=== PATIENT | female | born 1990 | race Caucasian/White ===

== ENCOUNTER 2017-02-23 23:35 | Inpatient (IN) | payer OTHER ==
[2017-02-24] MEDS ORDERED: SOD CHLORIDE 0.9% 1,000 ML IV (00:30)
[2017-02-24 01:19] LABS: ADD MAN DIFF? NO
[2017-02-24 01:31] LABS: BASOPHILS % 0.2 % (0.0-2.0); EOSINOPHILS % 0.3 % (0.0-7.0); HEMATOCRIT 25.8 % (37.0-47.0); HEMOGLOBIN 8.9 g/dl (12.0-16.0); LYMPHOCYTES % 10.2 % (15.0-51.0); MEAN CORPUSCULAR HEMOGLOBIN 30.6 pg (29.0-33.0); MEAN CORPUSCULAR HGB CONC 34.5 g/dl (32.0-37.0); MEAN CORPUSCULAR VOLUME 88.7 fl (82.0-101.0); MEAN PLATELET VOLUME 10.6 fl (7.4-10.4); MONOCYTE # 0.5 10^3/ul (0.3-0.9); MONOCYTES % 4.8 % (0.0-11.0); NEUTROPHIL # 8.4 10^3/ul (1.6-7.5); NEUTROPHILS % 84.2 % (39.0-77.0); PLATELET COUNT 148 10^3/UL (140-415); RED BLOOD COUNT 2.91 10^6/ul (4.20-5.40); RED CELL DISTRIBUTION WIDTH 12.3 % (11.5-14.5)
[2017-02-24] MEDS ORDERED: LACTATED RINGER'S 1,000 ML IV (01:31)
[2017-02-24 01:53] LABS: INR 0.99; PROTIME 13.2 Sec (11.9-14.9)
[2017-02-24 01:54] LABS: PARTIAL THROMBOPLASTIN TIME 25.5 Sec (25.0-35.0)
[2017-02-24] MEDS ORDERED: CEFAZOLIN 2 GM/50 ML (PMX) 50 ML IVPB (02:00)
[2017-02-24 02:13] LABS: ALANINE AMINOTRANSFERASE 30 IU/L (13-69); ALBUMIN 3.6 g/dl (3.3-4.9); ALBUMIN/GLOBULIN RATIO 1.33; ALKALINE PHOSPHATASE 53 IU/L (42-121); ANION GAP 15 (8-16); ASPARTATE AMINO TRANSFERASE 22 IU/L (15-46); BILIRUBIN,INDIRECT 0.1 mg/dl (0-1.1); BILIRUBIN,TOTAL 0.1 mg/dl (0.2-1.3); BLOOD UREA NITROGEN 18 mg/dl (7-20); CALCIUM 8.4 mg/dl (8.4-10.2); CARBON DIOXIDE 21 mmol/L (21-31); CHLORIDE 106 mmol/L (97-110); CREATININE 0.68 mg/dl (0.44-1.00); GLUCOSE 115 mg/dl (70-220); LIPASE 59 U/L (23-300); POTASSIUM 4.1 mmol/L (3.5-5.1); SODIUM 138 mmol/L (135-144); TOTAL PROTEIN 6.3 g/dl (6.1-8.1)
[2017-02-24] MEDS ORDERED: ROCURONIUM 50 MG INJ (02:48)
[2017-02-24] MEDS ORDERED: MIDAZOLAM 1 MG/ML 2 ML INJ (02:48)
[2017-02-24] MEDS ORDERED: PROPOFOL 20 ML (02:48)
[2017-02-24] MEDS ORDERED: NEOSTIGMINE 3 MG/3 ML SYRINGE (02:48)
[2017-02-24] MEDS ORDERED: ONDANSETRON 4 MG INJ (02:49)
[2017-02-24] MEDS ORDERED: ROPIVACAINE 0.5 % 30 ML VIAL (02:49)
[2017-02-24] MEDS ORDERED: METOCLOPRAMIDE 10 MG INJ (02:49)
[2017-02-24] MEDS ORDERED: CEFAZOLIN 1 GM INJ (02:52)
[2017-02-24] MEDS ORDERED: SUCCINYLCHOLINE CHLORIDE 100 MG/5 ML SYG IV (03:08)
[2017-02-24] MEDS ORDERED: ETOMIDATE 20 MG INJ (03:10)
[2017-02-24] MEDS ORDERED: HYDROmorphONE 2 MG/ML SYG (03:28)
[2017-02-24] MEDS ORDERED: KETOROLAC 30 MG INJ (04:50)
[2017-02-24] MEDS: BUPIVACAINE 0.5%/EPI (SDV) 30 ML INJ (04:55)
[2017-02-24] MEDS ORDERED: ONDANSETRON 4 MG INJ IV (05:30)
[2017-02-24] MEDS ORDERED: HYDROmorphONE (0.2 MG/ML) 10ML SYG IV ×3 (05:30)
[2017-02-24] MEDS ORDERED: METOCLOPRAMIDE 10 MG INJ IV (06:00)
[2017-02-24] MEDS: IBUPROFEN 600 MG TAB PO ×4 (06:00→23:49)
[2017-02-24] MEDS ORDERED: HYDROCODONE/APAP (5/325) TAB PO (06:00)
[2017-02-24] MEDS ORDERED: GLYCOPYRROLATE 1 MG INJ (07:00)
[2017-02-24] MEDS: POLYSACCHARIDE IRON COMPLEX CAP PO (10:36)
[2017-02-24 12:12] LABS: HEMATOCRIT 22.9 % (37.0-47.0); HEMOGLOBIN 7.8 g/dl (12.0-16.0)
[2017-02-25] MEDS: IBUPROFEN 600 MG TAB PO ×3 (06:03→18:43)
[2017-02-25 06:08] LABS: ADD MAN DIFF? NO
[2017-02-25 06:14] LABS: WHITE BLOOD COUNT 5.3 10^3/ul (4.8-10.8)
[2017-02-25 06:14] LABS: ABNORMAL IP MESSAGE 1; BASOPHILS % 0.2 % (0.0-2.0); EOSINOPHILS % 0.6 % (0.0-7.0); HEMATOCRIT 18.3 % (37.0-47.0); LYMPHOCYTES # 1.5 10^3/ul (0.8-2.9); LYMPHOCYTES % 27.9 % (15.0-51.0); MEAN CORPUSCULAR HEMOGLOBIN 30.5 pg (29.0-33.0); MEAN CORPUSCULAR HGB CONC 33.9 g/dl (32.0-37.0); MEAN CORPUSCULAR VOLUME 90.1 fl (82.0-101.0); MONOCYTE # 0.5 10^3/ul (0.3-0.9); MONOCYTES % 8.6 % (0.0-11.0); NEUTROPHIL # 3.3 10^3/ul (1.6-7.5); NEUTROPHILS % 62.3 % (39.0-77.0); PLATELET COUNT 100 10^3/UL (140-415); RED BLOOD COUNT 2.03 10^6/ul (4.20-5.40); RED CELL DISTRIBUTION WIDTH 12.8 % (11.5-14.5)
[2017-02-25 06:32] LABS: HEMOGLOBIN 6.2 g/dl (12.0-16.0); POSITIVE DIFF @See below
[2017-02-25 06:33] LABS: PATH REVIEW? YES
[2017-02-25 06:42] LABS: ADD UMIC YES; UR ASCORBIC ACID NEGATIVE (NEGATIVE); UR BILIRUBIN (Dip) NEGATIVE (NEGATIVE); UR BLOOD (Dip) 3+ mg/dL (NEGATIVE); UR CLARITY SLIGHTLY CLOUDY (CLEAR); UR COLOR YELLOW (YELLOW); UR GLUCOSE (Dip) NEGATIVE (NEGATIVE); UR KETONES (Dip) NEGATIVE (NEGATIVE); UR LEUKOCYTE ESTERASE (Dip) TRACE Leu/ul (NEGATIVE); UR MUCUS FEW /HPF (NONE SEEN); UR NITRITE (Dip) NEGATIVE (NEGATIVE); UR RBC > 182 /HPF (0-5); UR SPECIFIC GRAVITY (Dip) 1.013 (1.003-1.030); UR SQUAMOUS EPITHELIAL CELL FEW /HPF (FEW); UR TOTAL PROTEIN (Dip) 1+ mg/dl (NEGATIVE); UR UROBILINOGEN (Dip) NEGATIVE (NEGATIVE); UR WBC 17 /HPF (0-5)
[2017-02-25 07:51] LABS: ANISOCYTOSIS 1+ (0-0); BASOPHILS % (M) 1 % (0-2); EOSINOPHILS % (M) 1 % (0-7); LYMPHOCYTES #M 1.1 10^3/ul (0.8-2.9); LYMPHOCYTES % (M) 22 % (15-51); MICROCYTOSIS 1+ (0-0); MONOCYTE #M 0.3 10^3/ul (0.3-0.9); MONOCYTES % (M) 6 % (0-11); PLATELET ESTIMATE DECREASED; SEGMENTED NEUTROPHILS (M) % 70 % (39-77); SMUDGE%M 6 % (0-0)
[2017-02-25] MEDS: POLYSACCHARIDE IRON COMPLEX CAP PO (10:12)
[2017-02-25] MEDS: ACETAMINOPHEN 325 MG TAB PO (11:06)
[2017-02-25 15:23] LABS: IMMEDIATE SPIN CROSSMATCH 1 4
[2017-02-25] MEDS: BARIUM SULF 2% 450 ML BTL (BERRY SMOOTHIE) PO (17:42)
[2017-02-25] MEDS: DIPHENHYDRAMINE 50 MG CAP PO (21:31)
[2017-02-26] MEDS: IBUPROFEN 600 MG TAB PO ×3 (00:39→11:59)
[2017-02-26 05:52] LABS: ADD MAN DIFF? NO
[2017-02-26 06:07] LABS: BASOPHILS % 0.4 % (0.0-2.0); EOSINOPHILS # 0.1 10^3/ul (0.0-0.5); EOSINOPHILS % 1.4 % (0.0-7.0); HEMATOCRIT 24.1 % (37.0-47.0); HEMOGLOBIN 8.1 g/dl (12.0-16.0); LYMPHOCYTES # 1.6 10^3/ul (0.8-2.9); LYMPHOCYTES % 31.4 % (15.0-51.0); MEAN CORPUSCULAR HEMOGLOBIN 29.9 pg (29.0-33.0); MEAN CORPUSCULAR HGB CONC 33.6 g/dl (32.0-37.0); MEAN CORPUSCULAR VOLUME 88.9 fl (82.0-101.0); MEAN PLATELET VOLUME 10.4 fl (7.4-10.4); MONOCYTE # 0.4 10^3/ul (0.3-0.9); MONOCYTES % 8.2 % (0.0-11.0); NEUTROPHIL # 2.9 10^3/ul (1.6-7.5); NEUTROPHILS % 58.2 % (39.0-77.0); PLATELET COUNT 112 10^3/UL (140-415); RED BLOOD COUNT 2.71 10^6/ul (4.20-5.40); RED CELL DISTRIBUTION WIDTH 13.5 % (11.5-14.5)
[2017-02-26] MEDS: POLYSACCHARIDE IRON COMPLEX CAP PO (08:10)
== END 2017-02-26 15:45 | disposition home or self-care (01) | DRG 777 ==
LOC: E/R 23:35 → MS2 02-24 06:35
PROC: 10T24ZZ Resection of Products of Conception, Ectopic, Percutaneous Endoscopic Approach (ICD-10-PCS; principal; 2017-02-24 02:30)
PROC: 0UB54ZZ Excision of Right Fallopian Tube, Percutaneous Endoscopic Approach (ICD-10-PCS; 2017-02-24 02:30)
PROC: 30233N1 Transfusion of Nonautologous Red Blood Cells into Peripheral Vein, Percutaneous Approach (ICD-10-PCS; 2017-02-24 02:49)
DX: O00.101 Right tubal pregnancy without intrauterine pregnancy (principal); K66.1 Hemoperitoneum; O08.89 Other complications following an ectopic and molar pregnancy; Z87.891 Personal history of nicotine dependence
CPT/HCPCS: 36415; 36430; 74176; 76801; 76817; 80053; 81001; 83690; 84702; 84703; 85014; 85018; 85025; 85610; 85730; 86850; 86900; 86901; 86920; 88104; 88302; 93005; 99291-25

== ENCOUNTER 2017-05-03 06:30 | Emergency (ER) | payer OTHER ==
[2017-05-03] MEDS: ACETAMINOPHEN 500 MG TAB PO (07:12)
[2017-05-03 07:18] LABS: URINE BLOOD (Dip) POC Negative (NEGATIVE); URINE GLUCOSE (Dip) POC Negative (NEGATIVE); URINE KETONES (Dip) POC Negative (NEGATIVE); URINE LEUKOCYTE EST (Dip) POC Negative (NEGATIVE); URINE NITRITE (Dip) POC Negative (NEGATIVE); URINE TOTAL PROTEIN POC Negative (NEGATIVE)
== END 2017-05-03 08:05 | disposition home or self-care (01) ==
LOC: FTE 06:30
DX: R50.9 Fever, unspecified (principal); F17.210 Nicotine dependence, cigarettes, uncomplicated
CPT/HCPCS: 81003; 81025; 99283

== ENCOUNTER 2017-10-04 20:56 | Emergency (ER) | payer OTHER ==
[2017-10-05] MEDS: ACETAMINOPHEN 325 MG TAB PO (00:45)
[2017-10-05 00:57] LABS: URINE BLOOD (Dip) POC Trace-intact (NEGATIVE); URINE GLUCOSE (Dip) POC Negative (NEGATIVE); URINE KETONES (Dip) POC Negative (NEGATIVE); URINE LEUKOCYTE EST (Dip) POC 2+ (NEGATIVE); URINE NITRITE (Dip) POC Positive (NEGATIVE); URINE TOTAL PROTEIN POC 2+ (NEGATIVE)
[2017-10-05] MEDS: CEFTRIAXONE 1 GM INJ IM (01:21)
== END 2017-10-05 01:31 | disposition home or self-care (01) ==
LOC: FTE 20:56
DX: N10 Acute pyelonephritis (principal); F17.210 Nicotine dependence, cigarettes, uncomplicated
CPT/HCPCS: 81003; 81025; 96372; 99284-25

== ENCOUNTER 2018-06-11 17:42 | Emergency (ER) | payer SELFPAY, OTHER ==
[2018-06-11] MEDS: ACETAMINOPHEN 325 MG TAB PO (19:59)
[2018-06-11 20:08] LABS: ADD UMIC NO; UR ASCORBIC ACID NEGATIVE (NEGATIVE); UR BILIRUBIN (Dip) NEGATIVE (NEGATIVE); UR BLOOD (Dip) NEGATIVE (NEGATIVE); UR CLARITY CLEAR (CLEAR); UR COLOR YELLOW (YELLOW); UR GLUCOSE (Dip) NEGATIVE (NEGATIVE); UR KETONES (Dip) NEGATIVE (NEGATIVE); UR LEUKOCYTE ESTERASE (Dip) NEGATIVE Leu/ul (NEGATIVE); UR NITRITE (Dip) NEGATIVE (NEGATIVE); UR SPECIFIC GRAVITY (Dip) 1.021 (1.003-1.030); UR TOTAL PROTEIN (Dip) NEGATIVE (NEGATIVE); UR UROBILINOGEN (Dip) NEGATIVE (NEGATIVE)
[2018-06-11] MEDS: KETOROLAC 30 MG INJ IM (20:19)
== END 2018-06-11 22:05 | disposition home or self-care (01) ==
LOC: FTE 17:42
DX: R10.2 Pelvic and perineal pain (principal); Z87.891 Personal history of nicotine dependence
CPT/HCPCS: 76830; 76856; 81003; 81025; 96372; 99285-25

== ENCOUNTER 2018-10-29 14:39 | Emergency (ER) | payer SELFPAY ==
[2018-10-29 16:46] LABS: URINE PH (Dip) POC 5.5 (5.0-8.5)
[2018-10-29 16:46] LABS: URINE BLOOD (Dip) POC 2+ (NEGATIVE); URINE GLUCOSE (Dip) POC Negative (NEGATIVE); URINE KETONES (Dip) POC Trace (NEGATIVE); URINE LEUKOCYTE EST (Dip) POC Negative (NEGATIVE); URINE NITRITE (Dip) POC Negative (NEGATIVE); URINE TOTAL PROTEIN POC 1+ (NEGATIVE)
[2018-10-29 17:13] LABS: ADD MAN DIFF? NO
[2018-10-29 17:14] LABS: WHITE BLOOD COUNT 5.2 10^3/ul (4.8-10.8)
[2018-10-29 17:14] LABS: BASOPHILS % 0.4 % (0.0-2.0); EOSINOPHILS # 0.1 10^3/ul (0.0-0.5); EOSINOPHILS % 1.5 % (0.0-7.0); HEMATOCRIT 39.7 % (37.0-47.0); HEMOGLOBIN 12.7 g/dl (12.0-16.0); LYMPHOCYTES # 1.5 10^3/ul (0.8-2.9); LYMPHOCYTES % 28.7 % (15.0-51.0); MEAN CORPUSCULAR HEMOGLOBIN 29.9 pg (29.0-33.0); MEAN CORPUSCULAR VOLUME 93.4 fl (82.0-101.0); MEAN PLATELET VOLUME 10.2 fl (7.4-10.4); MONOCYTE # 0.4 10^3/ul (0.3-0.9); MONOCYTES % 8.2 % (0.0-11.0); NEUTROPHIL # 3.2 10^3/ul (1.6-7.5); PLATELET COUNT 183 10^3/UL (140-415); RED BLOOD COUNT 4.25 10^6/ul (4.20-5.40); RED CELL DISTRIBUTION WIDTH 13.7 % (11.5-14.5)
== END 2018-10-29 18:03 | disposition home or self-care (01) ==
LOC: FTE 14:39
DX: R10.2 Pelvic and perineal pain (principal); F17.210 Nicotine dependence, cigarettes, uncomplicated
CPT/HCPCS: 36415; 76801; 76817; 81003; 81025; 84702; 85025; 99284-25